=== PATIENT | male | born 1965 | race Caucasian/White ===

== ENCOUNTER 2018-01-28 20:37 | Emergency (ER) | payer MEDICAID, OTHER ==
[~2018-01-28] VITALS: Ht 177.8 cm; Wt 96.2 kg
[2018-01-28 21:26] VITALS: BP 158/78
--- NOTE | 2018-01-28 21:26 | NUR ---
BIBSELF C/O WOUND ON RIGHT ADAMS S/P GLF YESTERDAY. -KO. TDAP UTD. PT AOX3 RR EVEN AND UNLABORED. NO SOB NOTED. NAD NOTED. NO NVD AT THIS TIME. PT NOTED WITH WOUND ON RIGHT ADAMS WITH TRIANGULAR WOUND POINTING DOWN [id number].
--- NOTE | 2018-01-28 22:15 | NUR ---
DR. LONDONO AT BEDSIDE FOR EVAL.
[2018-01-28] MEDS ORDERED: NEOMY SULF/BACITRAC ZN/POLY 15 GM TUBE TP STA (22:36)
[2018-01-28] MEDS ORDERED: BACI/NEOM/POLY B OINT PKT 1 UDPKT PACKET ONE (22:46)
[2018-01-28] MEDS ORDERED: CEPHALEXIN MONOHYDRATE 500 MG CAPSULE PO ONE ×2 (22:46→23:00)
[2018-01-28] MEDS ORDERED: TDAP [DIPH/PERTUSSIS/TET] 0.5 ML VIAL IM ONE ×2 (22:46→23:00)
== END 2018-01-28 22:59 | disposition home or self-care (01) ==
LOC: EDBD 20:43 → ER 20:43
DX: S81.811A Laceration without foreign body, right lower leg, initial encounter (principal); L08.9 Local infection of the skin and subcutaneous tissue, unspecified; F10.10 Alcohol abuse, uncomplicated; F17.200 Nicotine dependence, unspecified, uncomplicated; W18.39XA Other fall on same level, initial encounter; Y93.89 Activity, other specified; Y92.89 Other specified places as the place of occurrence of the external cause; Y99.8 Other external cause status
CPT/HCPCS: 90715; A4606; A6402; Z7610